=== PATIENT | female | born 1970 | race Caucasian/White ===

== ENCOUNTER 2017-03-23 09:56 | Inpatient (IN) | payer BC, OTHER ==
[2017-03-23] MEDS ORDERED: methylPREDNISolone Sod Succ/PF 125 MG/2 ML VIAL ONE (10:26)
[2017-03-23 10:39] LABS: #Basophils 0.1 thou/uL (0.0-0.2); #Eosinphils 0.1 thou/uL (0.0-0.7); #Lymphocytes 0.6 thou/uL (1.20-3.40); #Monocytes 0.5 thou/uL (0.11-0.59); #Neutrophils 6.3 thou/uL (1.40-6.50); %Basophils 1.1 % (0.0-1.0); %Eosinophils 1.2 % (0.0-10.0); %Lymphocytes 7.3 % (21.0-51.0); %Monocytes 7.1 % (0.0-10.0); %Neutrophils 83.3 % (42.0-75.0); Hemoglobin 14.1 g/dL (12.0-16.0); Mean Corpuscular Hemoglobin 31.9 pg (27.0-31.0); Mean Corpuscular Volume 93.8 fl (81.0-99.0); Mean Platelet Volume 6.8 fL (7.4-10.4); Platelet Count 213 thou/uL (130-400); RBC Distribution Width 11.7 % (11.5-14.5); Red Blood Cell (RBC) Count 4.43 mill/uL (4.20-5.40); White Blood Cell (WBC) Count 7.5 thou/uL (4.8-10.8)
[2017-03-23 10:42] LABS: INR-International Normal Ratio 0.9; Prothrombin Time 12.4 SEC (12.0-14.7)
[2017-03-23 10:43] LABS: D-Dimer Test 0.51 *mcg/mL (0.27-0.43)
[2017-03-23 10:50] LABS: BHCG - Serum Negative (NEGATIVE); Pregs Control Background? CLEAR/WHITE (CLR/WHITE); Pregs Control Bar Appear? YES (CONTROL BAR)
[2017-03-23 10:51] LABS: ALT (SGPT) 17 U/L (8-55); AST (SGOT) 17 U/L (5-34); Albumin 4.1 g/dL (3.5-5.0); Alkaline Phosphatase 66 U/L (40-150); Anion Gap 14 mmol/L (10-20); BUN (Urea Nitrogen) 13 mg/dL (7.0-18.7); Bilirubin, Total 0.4 mg/dL (0.2-1.2); Calc. Creatinine Clearance 0 mL/min (70-130); Calcium 8.7 mg/dL (7.8-10.44); Carbon Dioxide 22 mmol/L (22-29); Chloride 109 mmol/L (98-107); Estimated GFR-MDRD 83; Globulin 2.5 g/dL (2.4-3.5); Glucose 98 mg/dL (70-105); Potassium 4.1 mmol/L (3.5-5.1); Protein, Total 6.6 g/dL (6.0-8.3); Sodium 141 mmol/L (136-145)
[2017-03-23 10:53] LABS: CKMB 0.9 ng/mL (0-6.6); Troponin I Less than 0.010 ng/mL (< 0.028)
[2017-03-23] MEDS ORDERED: Magnesium Sulfate 2 GM/100 ML BAG ONE (11:18)
[2017-03-23 11:59] LABS: Bilirubin Negative (Negative); Blood, Urine Small (Negative); Clarity Clear (Clear); Glucose, Urine (Dipstick) Negative (Negative); Leukocyte Trace (Negative); Nitrite Negative (Negative); Protein, Urine (Dipstick) Negative (Neg-Trace); Urobilinogen 0.2 mg/dL (0.2-1.0); pH, Urine 7.5 (5.0-9.0)
[2017-03-23 12:18] LABS: Bacteria/HPF 1+ HPF (None Seen); RBC/HPF 0-3 HPF (0-3); Squamous Epithelial 0-3 HPF (0-3); WBC/HPF 0-3 HPF (0-3)
[2017-03-23] MEDS ORDERED: Levofloxacin 500 mg/D5W 100 ml Premix Bag ONE (12:20)
[2017-03-23] MEDS ORDERED: Albuterol Sulfate 2.5 mg/3 ml Neb NEB PRN (13:23)
[2017-03-23] MEDS ORDERED: Sodium Chloride 0.9% 10 ML ONE (13:24)
[2017-03-23 13:34] VITALS: BMI 33.2
[2017-03-23] MEDS ORDERED: methylPREDNISolone Sod Succ/PF 125 MG/2 ML VIAL IVP SCH (18:00)
[2017-03-23] MEDS ORDERED: Lorazepam 0.5 MG TAB PO PRN (18:07)
--- NOTE | 2017-03-23 19:21 | RAD ---
CHEST TWO VIEWS: 03/23/17 Comparison is made with the 05/06/15 study. The heart is normal in size and the lungs are clear. No infiltrate or effusion was seen. Vascularity is normal. The mediastinum appears normal. The trachea is midline. IMPRESSION: Stable exams showing no acute finding. POS: HOME
--- NOTE | 2017-03-23 21:19 | HP ---
CHIEF COMPLAINT: Shortness of breath and wheezing. HISTORY OF PRESENT ILLNESS: Ms. Escobar is a 47-year-old female who presented to the emergency room today with worsening shortness of breath. Patient reports she was in her usual state of health and compliant with all of her medications for asthma/COPD, when she stepped in a hole at work on the evening of 03/20, which resulted in a fall, contacting her knees bilaterally and causing some bruising. She reports that she became soak and wet with this. Denies any other trauma including to the thorax or to the head. However, she noted the next morning onset of chest congestion, which subsequently increased to wheezing, tightness, and white sputum production. She used her DuoNeb back to back and her albuterol inhaler at home and continued to have worsening symptoms. Therefore, she presented to the emergency room today for further evaluation. Patient also admits to some right-sided anterior chest pain that increased with breathing that radiates to back. She does have a pulse ox at home that she reports was down to 92%. She reports a long history of asthma that was diagnosed in her late 20s followed by COPD several years later. She has a past smoking history, but has been abstaining from smoking for over a year now. She reports her condition was monitored previously by special client bus driver [place] She has not seen anyone locally for this other than her primary care provider. She reports a history of ICU admission x2 in the past but has never been intubated. She reports her last hospitalization for asthma or COPD exacerbation was over 6 years ago. She reports having milder symptoms, diagnosed with acute bronchitis last month by her primary care provider's office and given a course of Zithromax and a Medrol Dosepak, which she completed. Otherwise, she has had no recent antibiotic therapy. In the emergency room, patient was treated with 10 mg of DuoNeb, 4 tablets of 81 mg aspirin, Solu-Medrol 125 mg IV push, mag sulfate 2 grams IV, and Levaquin 500 mg IV. Patient was notably tachypneic on arrival, but continued to have a stable oxygen saturation of 96% on room air. She was placed on O2 at 2 liters per minute and this remained stable. Therefore, we were called to admit the patient for persistent tachypnea and wheezing. PAST MEDICAL HISTORY: 1. Hypothyroidism. 2. Anxiety. 3. Asthma. 4. Chronic obstructive pulmonary disease. 5. Former smoker. 6. Esophageal reflux. 7. Intermittent right upper quadrant pain of uncertain etiology. PAST SURGICAL HISTORY: None. SOCIAL HISTORY: No alcohol or illicit drug use. Former smoker, but quit in the last year. She is in a domestic partnership for 14 years and lives in [place]. Her primary care clinic is [facility] in [place] with Sae Cam, her current primary care provider. FAMILY HISTORY: Noncontributory. HOME MEDICATIONS: 1. SHEET TESTER thyroid 30 mg daily. 2. Sertraline 125 mg p.o. q.p.m. 3. Protonix 40 mg p.o. daily. 4. Advair HFA 230 mcg-21 mcg/actuation b.i.d. 5. ProAir HFA 2 inhalations q.4 hours p.r.n. 6. DuoNeb p.r.n. REVIEW OF SYSTEMS: General: Denies fever, chills, weight loss, myalgias, positive weight gain. HEENT: Denies sore throat, ear pain, rhinorrhea, changes in vision. Respirations: Denies hemoptysis. Positive cough, positive white sputum. Cardiovascular: Right-sided anterior chest pain that increases with breathing, but is constant and radiates to back. No orthopnea, PND, history of angina. Gastrointestinal: Denies constipation, diarrhea, nausea, vomiting, melena, hematochezia. Genitourinary: Patient reports good urinary output. Denies dysuria, gross hematuria, frequency, urgency. Endocrine: Patient reports inability to lose weight. Longstanding. Denies heat or cold intolerance. Musculoskeletal: Patient reports pain to the right upper quadrant of the abdomen that is worse after eating and present for approximately 1 month. Uncertain etiology. Bruising to bilateral knees, status post fall few days ago. Lymphatic: Denies swelling. PHYSICAL EXAMINATION: VITAL SIGNS: Blood pressure 130/84, heart rate 90, O2 sat 96% on room air, respiration shows respirations 30, temperature 98.7. At my exam, temperature 98.3, pulse 95, respirations 24, 96% on 2 liters per minute, blood pressure 118/ 59. GENERAL: Well-developed, overweight female who appears to be in no acute distress, speaks in complete sentences. Her respiratory rate does increase when it is time for examination with tachypnea noted and slightly anxious in appearance. Alert and oriented x3. HEENT: Normocephalic, atraumatic. Pupils equally round, reactive to light and accommodation. Extraocular muscles intact. Nares are patent without discharge. Tongue protrudes in the midline. NECK: Supple, without lymphadenopathy, thyromegaly, JVD, or bruit. HEART: Regular rate and rhythm. Normal S1, S2. No murmurs, clicks, rubs, or gallops. LUNGS: Diminished air entry throughout with expiratory greater than inspiratory wheezing in all dash. No rhonchi. NEUROLOGICAL: Positive bowel sounds in all four quadrants, soft, nontender, nondistended, no masses, guarding, or rebound tenderness. EXTREMITIES: No cyanosis, clubbing, or edema. MUSCULOSKELETAL: Mild ecchymosis noted over the anterior patellar bilaterally without erythema or warmth. NEUROLOGIC: Cranial nerves II-XII grossly intact. No focal deficits. PSYCHIATRIC: Positive anxious, normal speech, thought process appropriate, affect appropriate. LABORATORY DATA: White count 7.5, hemoglobin 14.1, hematocrit 41.6, platelets 213 with 83% neutrophils, 7% lymphocytes. PT 12.4, INR 0.9, PTT 29.0. D-Dimer 0.51. Sodium 141, potassium 4.1, chloride 109, bicarb 22, BUN 13, creatinine 0.75, glucose 98, lactic acid 1.4, calcium 8.7. AST 17, ALT 17, alkaline phosphatase 66, CK-MB 0.9, troponin I less than 0.010. BNP of 11.8, total protein 6.6, albumin 4.1, globulin 2.5. test negative. Urinalysis significant for small blood, trace leukocyte esterase, 1+ bacteria, otherwise negative. EKG shows normal sinus rhythm with heart rate 82 beats per minute, no ischemic changes. Chest x-ray shows no acute consolidation and hyperexpansion. ASSESSMENT AND PLAN: 1. Acute exacerbation of asthma/chronic obstructive pulmonary disease. Patient will be admitted and continued on O2 p.r.n. We will continue DuoNebs q.6 hours with albuterol q.2 hours p.r.n. We will continue on Solu-Medrol 125 mg IV q.8 hours. We will continue Levaquin 500 mg IV daily. We will continue the patient's inhaled corticosteroid long-acting beta agonist combo. Repeat CBC and basic metabolic profile in the a.m. Follow up official Radiology read of the chest x-ray. Patient appears to be anxious with shallow breathing that seems to increase at the time of examination. Therefore, I think she may benefit from a small dose of lorazepam. We will try this cautiously. 2. Elevated D-dimer. This is minimally elevated, however, with the patient's reported chest pain and recent trauma, I would to like to proceed with CT, PE protocol. 3. Right upper quadrant pain. This has been ongoing for approximately 1 month and was related to food. I recommend that the patient have her gallbladder evaluated as an outpatient. 4. Esophageal reflux. Patient will be continued on her pantoprazole. 5. Hypothyroidism. We will check a TSH. Continue patient's thyroid medication. 6. Anxiety. The patient sertraline will be continued during her hospitalization. We will give lorazepam p.r.n. as per #1. 7. Prophylaxis. PPI has been continued. We will order SCDs. CODE STATUS: FULL RESUSCITATION. MTDD
--- NOTE | 2017-03-23 23:43 | CT ---
CT ANGIO OF THE THORAX WITH CONTRAST 03/23/[address] of the chest was done after a bolus of IV contrast. Unfortunately, the timing of the bolus is suboptimal such that more of the dense contrast is in the systemic arteries and pulmonary arteries . Because of this, this study is indeterminate for pulmonary embolism. There were no obvious very lar ge filling defects in the main pulmonary arteries. Once one gets much beyond that, the sensitivity qu ickly decreases. There is no sign of aortic aneurysm or dissection. Significant coronary artery calci fications were not appreciated. There is no pericardial effusion. The mediastinum showed no mass or a denopathy. The lungs show no infiltrate, nodule, or effusion. The visible portions of the upper abdomen were unr emarkable. IMPRESSION: 1. Indeterminate study for pulmonary embolism. None were appreciated in the largest branches but little can be said passed those. 2. No acute cardiopulmonary findings otherwise. Preliminary findings taken to nursing station at approximately 1930. POS: HOME
[2017-03-24 05:38] LABS: #Basophils 0.1 thou/uL (0.0-0.2); #Lymphocytes 0.4 thou/uL (1.20-3.40); #Monocytes 0.5 thou/uL (0.11-0.59); #Neutrophils 9.5 thou/uL (1.40-6.50); %Basophils 0.6 % (0.0-1.0); %Lymphocytes 4.1 % (21.0-51.0); %Monocytes 4.8 % (0.0-10.0); %Neutrophils 90.6 % (42.0-75.0); Hemoglobin 13.5 g/dL (12.0-16.0); Mean Corpuscular HGB CONC 33.2 g/dL (32.0-36.0); Mean Corpuscular Hemoglobin 31.3 pg (27.0-31.0); Mean Corpuscular Volume 94.3 fl (81.0-99.0); Mean Platelet Volume 6.4 fL (7.4-10.4); Platelet Count 241 thou/uL (130-400); RBC Distribution Width 11.7 % (11.5-14.5); White Blood Cell (WBC) Count 10.5 thou/uL (4.8-10.8)
[2017-03-24] MEDS ORDERED: Albuterol Sulfate 2.5 mg/3 ml Neb NEB PRN (05:51)
[2017-03-24 05:58] LABS: Anion Gap 13 mmol/L (10-20); BUN (Urea Nitrogen) 13 mg/dL (7.0-18.7); Calc. Creatinine Clearance 145 mL/min (70-130); Calcium 9.3 mg/dL (7.8-10.44); Carbon Dioxide 23 mmol/L (22-29); Chloride 109 mmol/L (98-107); Estimated GFR-MDRD 85; Glucose 117 mg/dL (70-105); Potassium 4.2 mmol/L (3.5-5.1); Sodium 141 mmol/L (136-145)
[2017-03-24] MEDS: Mometasone/Formoterol 60 PUFF AER INH SCH ×2 (06:28→18:13)
[2017-03-24] MEDS ORDERED: Pantoprazole 40 MG GRANULES PACKET PO SCH (09:00)
[2017-03-24] MEDS ORDERED: methylPREDNISolone Sod Succ/PF 125 MG/2 ML VIAL IVP SCH ×3 (10:00→14:00)
[2017-03-24] MEDS: Ibuprofen 800 MG TAB PO PRN (11:45)
[2017-03-24] MEDS: methylPREDNISolone Sod Succ/PF 125 MG/2 ML VIAL IVP SCH ×2 (14:59→21:57)
[2017-03-24] MEDS: guaiFENesin ER 600 MG TAB PO SCH (21:58)
[2017-03-25] MEDS: methylPREDNISolone Sod Succ/PF 125 MG/2 ML VIAL IVP SCH ×3 (05:39→21:29)
[2017-03-25 06:23] LABS: #Basophils 0.1 thou/uL (0.0-0.2); #Lymphocytes 0.6 thou/uL (1.20-3.40); #Monocytes 0.4 thou/uL (0.11-0.59); #Neutrophils 16.8 thou/uL (1.40-6.50); %Basophils 0.3 % (0.0-1.0); %Lymphocytes 3.2 % (21.0-51.0); %Monocytes 2.1 % (0.0-10.0); %Neutrophils 94.4 % (42.0-75.0); Mean Corpuscular HGB CONC 33.6 g/dL (32.0-36.0); Mean Corpuscular Volume 95.1 fl (81.0-99.0); Mean Platelet Volume 6.4 fL (7.4-10.4); Platelet Count 244 thou/uL (130-400); RBC Distribution Width 11.8 % (11.5-14.5); Red Blood Cell (RBC) Count 4.38 mill/uL (4.20-5.40); White Blood Cell (WBC) Count 17.8 thou/uL (4.8-10.8)
[2017-03-25] MEDS: Mometasone/Formoterol 60 PUFF AER INH SCH ×2 (06:25→18:37)
[2017-03-25 06:29] LABS: Anion Gap 15 mmol/L (10-20); BUN (Urea Nitrogen) 15 mg/dL (7.0-18.7); Calc. Creatinine Clearance 139 mL/min (70-130); Calcium 9.5 mg/dL (7.8-10.44); Carbon Dioxide 23 mmol/L (22-29); Chloride 107 mmol/L (98-107); Estimated GFR-MDRD 82; Glucose 131 mg/dL (70-105); Potassium 4.3 mmol/L (3.5-5.1); Sodium 141 mmol/L (136-145)
[2017-03-25] MEDS: guaiFENesin ER 600 MG TAB PO SCH ×2 (09:29→21:28)
--- NOTE | 2017-03-25 09:29 | RAD ---
PA AND LATERAL VIEWS OF CHEST: Date: 03/25/17 HISTORY: Pneumonia. FINDINGS: Comparison made with exam of 03/23/17. The heart size is normal. The lungs are well expanded without focal areas of consolidation, pneumotho rax, or pleural effusions. There are mild degenerative changes in the spine. IMPRESSION: No radiographic evidence of acute cardiopulmonary process. POS: [facility]
[2017-03-25] MEDS: Ibuprofen 800 MG TAB PO PRN (14:41)
[2017-03-26] MEDS: Mometasone/Formoterol 60 PUFF AER INH SCH ×2 (06:23→18:19)
[2017-03-26] MEDS: methylPREDNISolone Sod Succ/PF 125 MG/2 ML VIAL IVP SCH ×3 (06:23→21:29)
[2017-03-26] MEDS: guaiFENesin ER 600 MG TAB PO SCH ×2 (09:30→21:31)
[2017-03-26] MEDS: Ibuprofen 800 MG TAB PO PRN (19:44)
[2017-03-27] MEDS: Mometasone/Formoterol 60 PUFF AER INH SCH (06:17)
[2017-03-27] MEDS: methylPREDNISolone Sod Succ/PF 125 MG/2 ML VIAL IVP SCH ×2 (06:17→13:38)
[2017-03-27] MEDS: guaiFENesin ER 600 MG TAB PO SCH ×2 (08:56→20:33)
[2017-03-27] MEDS: Ibuprofen 800 MG TAB PO PRN (12:42)
[2017-03-28] MEDS: Mometasone/Formoterol 60 PUFF AER INH SCH ×3 (06:05→17:49)
[2017-03-28] MEDS: predniSONE 20 MG TAB PO SCH (08:34)
[2017-03-28] MEDS: guaiFENesin ER 600 MG TAB PO SCH ×2 (08:34→20:42)
[2017-03-28] MEDS: Ibuprofen 800 MG TAB PO PRN (10:46)
[2017-03-29] MEDS: Mometasone/Formoterol 60 PUFF AER INH SCH (06:10)
[2017-03-29 06:55] VITALS: BP 125/61; TEMP 98.3
[2017-03-29] MEDS: guaiFENesin ER 600 MG TAB PO SCH (09:11)
[2017-03-29] MEDS: predniSONE 20 MG TAB PO SCH (09:11)
--- NOTE | 2017-03-29 22:29 | DIS ---
DATE OF ADMISSION: 03/23/2017 DATE OF DISCHARGE: 03/29/2017 ADMISSION DIAGNOSES: 1. Chronic obstructive pulmonary disease/asthma exacerbation. 2. Anxiety. 3. Former smoker. DISCHARGE DIAGNOSES: 1. Chronic obstructive pulmonary disease/asthma exacerbation, improving. 2. Ex-smoker. 3. Anxiety, stable. BRIEF SUMMARY OF HISTORY AND PHYSICAL: A 47-year-old white female who presented to the emergency [facility] on the day of admission with greater than 3 days history of increasing shortness of breath. She wa s exposed to someone else in her house, who had been coughing and having low grade fevers. The patie nt says that she stepped in the hole in the evening on 03/20/2017 and she fell, hitting her knees, ca using some bruising. She said she got very wet at that time. No significant trauma and then began h aving increased chest congestion with wheezing, tightness, and white sputum production. She used her DuoNebs back to back and as well as albuterol, but did not improve. She presented to the emergency room, was found to have a COPD/asthma exacerbation, and was admitted to the hospital. BRIEF SUMMARY OF HOSPITAL COURSE: The patient initially had a CT scan of the chest after x-rays were normal. CT scan was inconclusive due to poor dye penetration, but no large emboli of the large vess els were seen. The branches consistent with no signs of PE. The patient was started on IV steroids as well as IV antibiotics, frequent neb treatments and oxygen as needed. Over the next several days, she slowly improved with decreased shortness of breath with activity, decreased reliance on oxygen a nd she was switched from IV to p.o. steroids, which she tolerated well and was stable enough to be di scharged back to home on 03/29/2017. At discharge, her O2 sats was 96% on room air. DISCHARGE MEDICATIONS: 1. CADASTRAL ENGINEER thyroid 30 mg daily. 2. Sertraline 125 mg daily. 3. Protonix 40 mg daily. 4. Advair two puffs b.i.d. 5. ProAir 2 inhalations q.4. h. p.r.n. 6. DuoNebs q.6 h. p.r.n. shortness of breath. 7. She will be put on p.o. prednisone taper, starting at 60 mg daily, decreasing down to 10 mg a day . 8. She was also placed on Levaquin to complete a full 10-day course. DISCHARGE INSTRUCTIONS: The patient was told not to have increased activity and activity mainly as t olerated due to shortness of breath. No work until she follows up in the clinic in [place] by the end of the week. She was told to return to the emergency room if any of her symptoms worsen in any way.
== END 2017-03-29 16:38 | disposition home or self-care (01) | DRG 191 ==
LOC: BURERS 09:56 → BURMED 12:15
PROVIDERS: ADMIT Family Medicine; ATTEND Family Medicine
DX: J44.1 Chronic obstructive pulmonary disease with (acute) exacerbation (principal); J45.901 Unspecified asthma with (acute) exacerbation; Z87.891 Personal history of nicotine dependence; K21.9 Gastro-esophageal reflux disease without esophagitis; E03.9 Hypothyroidism, unspecified; F41.9 Anxiety disorder, unspecified
CPT/HCPCS: 36415; 71020; 71270; 80048; 80053; 81003; 81015; 82553; 83605; 83880; 84443; 84484; 84703; 85025; 85379; 85610; 85730; 87040; 87070; 87205; 93005; 94664; 94760; 96365; 96367; 96375; A4216; J1956; J2930; J3475; J7506; J7620

== ENCOUNTER 2017-08-28 18:20 | Emergency (ER) | payer BC | END 2017-08-28 18:54 | disposition home or self-care (01) | LOC: BURERS 18:20 | DX: M70.52 Other bursitis of knee, left knee (principal); J44.9 Chronic obstructive pulmonary disease, unspecified; F17.210 Nicotine dependence, cigarettes, uncomplicated; Z79.899 Other long term (current) drug therapy | CPT/HCPCS: 99283 ==

== ENCOUNTER 2018-04-22 21:49 | Emergency (ER) | payer BC ==
--- NOTE | 2018-04-22 23:59 | RAD ---
RIGHT HAND THREE VIEWS: 04/22/18 No fracture was seen. All bones appear intact. The carpal relationships seem normal. IMPRESSION: No acute finding. POS: HOME
== END 2018-04-22 22:44 | disposition home or self-care (01) ==
LOC: BURERS 21:49
DX: S62.514A Nondisplaced fracture of proximal phalanx of right thumb, initial encounter for closed fracture (principal); S60.221A Contusion of right hand, initial encounter; I10 Essential (primary) hypertension; J44.9 Chronic obstructive pulmonary disease, unspecified; F17.210 Nicotine dependence, cigarettes, uncomplicated; Z79.51 Long term (current) use of inhaled steroids; Z79.899 Other long term (current) drug therapy; W18.30XA Fall on same level, unspecified, initial encounter
CPT/HCPCS: Q4049

== ENCOUNTER 2020-06-20 13:35 | Emergency (ER) | payer BC, OTHER ==
[2020-06-20 14:21] LABS: #Basophils 0.1 thou/uL (0.0-0.2); #Eosinphils 0.1 thou/uL (0.0-0.7); #Lymphocytes 1.5 thou/uL (1.20-3.40); #Monocytes 0.5 thou/uL (0.11-0.59); %Basophils 0.8 % (0.0-1.0); %Eosinophils 0.6 % (0.0-10.0); %Lymphocytes 13.5 % (21.0-51.0); %Monocytes 4.5 % (0.0-10.0); %Neutrophils 80.6 % (42.0-75.0); Mean Corpuscular HGB CONC 32.3 g/dL (32.0-36.0); Mean Corpuscular Hemoglobin 31.2 pg (27.0-31.0); Mean Corpuscular Volume 96.5 fL (78.0-98.0); Mean Platelet Volume 9.1 fL (7.4-10.4); Platelet Count 255 thou/uL (130-400); RBC Distribution Width 13.5 % (11.5-14.5); White Blood Cell (WBC) Count 11.1 thou/uL (4.8-10.8)
[2020-06-20] MEDS ORDERED: Ondansetron PF 4 MG/2 ML Vial ONE (14:22)
[2020-06-20] MEDS ORDERED: Morphine 4 MG/ML VIAL ONE (14:22)
[2020-06-20] MEDS ORDERED: Aspirin Chewable 81 MG TAB ONE (14:22)
[2020-06-20 14:33] LABS: ALT (SGPT) 21 U/L (8-55); AST (SGOT) 17 U/L (5-34); Albumin 4.4 g/dL (3.5-5.0); Alkaline Phosphatase 69 U/L (40-110); Anion Gap 13 mmol/L (10-20); BUN (Urea Nitrogen) 13 mg/dL (7.0-18.7); Bilirubin, Total 0.3 mg/dL (0.2-1.2); Calc. Creatinine Clearance 0 mL/min (70-130); Calcium 9.2 mg/dL (7.8-10.44); Carbon Dioxide 27 mmol/L (22-29); Chloride 106 mmol/L (98-107); Globulin 2.3 g/dL (2.4-3.5); Glucose 111 mg/dL (70-105); Potassium 4.2 mmol/L (3.5-5.1); Protein, Total 6.7 g/dL (6.0-8.3); Sodium 142 mmol/L (136-145)
== END 2020-06-20 16:01 | disposition home or self-care (01) ==
LOC: BURERS 13:35
DX: R07.2 Precordial pain (principal); J44.9 Chronic obstructive pulmonary disease, unspecified; K21.9 Gastro-esophageal reflux disease without esophagitis; G43.909 Migraine, unspecified, not intractable, without status migrainosus; Z87.891 Personal history of nicotine dependence
CPT/HCPCS: 71045; 80053; 83880; 84484; 85025; 93005; 96374; 96375; J2270; J2405

== ENCOUNTER 2020-06-23 01:40 | Emergency (ER) | payer BC ==
[2020-06-23] MEDS ORDERED: Aspirin Chewable 81 MG TAB ONE (02:11)
[2020-06-23] MEDS ORDERED: Nitroglycerin 0.4 MG TAB 1 EACH ONE (02:11)
[2020-06-23 02:14] LABS: #Basophils 0.1 thou/uL (0.0-0.2); #Eosinphils 0.1 thou/uL (0.0-0.7); #Lymphocytes 2.5 thou/uL (1.20-3.40); #Monocytes 0.5 thou/uL (0.11-0.59); #Neutrophils 6.5 thou/uL (1.40-6.50); %Basophils 0.7 % (0.0-1.0); %Eosinophils 1.3 % (0.0-10.0); %Lymphocytes 26.3 % (21.0-51.0); %Monocytes 4.9 % (0.0-10.0); %Neutrophils 66.9 % (42.0-75.0); Hemoglobin 14.5 g/dL (12.0-16.0); Mean Corpuscular HGB CONC 32.9 g/dL (32.0-36.0); Mean Corpuscular Hemoglobin 31.1 pg (27.0-31.0); Mean Corpuscular Volume 94.7 fL (78.0-98.0); Mean Platelet Volume 8.3 fL (7.4-10.4); Platelet Count 235 thou/uL (130-400); RBC Distribution Width 12.8 % (11.5-14.5); Red Blood Cell (RBC) Count 4.67 mill/uL (4.20-5.40); White Blood Cell (WBC) Count 9.7 thou/uL (4.8-10.8)
[2020-06-23] MEDS ORDERED: Lidocaine 2% PF 100 mg/5 ml Syringe ONE (02:17)
[2020-06-23] MEDS ORDERED: Mag-Al Plus 1200 MG/1200 MG/120 MG/30 ML UDCUP ONE (02:17)
[2020-06-23 02:30] LABS: ALT (SGPT) 16 U/L (8-55); AST (SGOT) 13 U/L (5-34); Albumin 4.2 g/dL (3.5-5.0); Alkaline Phosphatase 77 U/L (40-110); Anion Gap 14 mmol/L (10-20); BUN (Urea Nitrogen) 23 mg/dL (7.0-18.7); Bilirubin, Total 0.2 mg/dL (0.2-1.2); Calc. Creatinine Clearance 0 mL/min (70-130); Calcium 9.5 mg/dL (7.8-10.44); Carbon Dioxide 25 mmol/L (22-29); Chloride 106 mmol/L (98-107); Globulin 2.7 g/dL (2.4-3.5); Glucose 105 mg/dL (70-105); Potassium 3.6 mmol/L (3.5-5.1); Protein, Total 6.9 g/dL (6.0-8.3); Sodium 141 mmol/L (136-145)
== END 2020-06-23 02:55 | disposition home or self-care (01) ==
LOC: BURERS 01:40
DX: R07.89 Other chest pain (principal); G43.909 Migraine, unspecified, not intractable, without status migrainosus; J44.9 Chronic obstructive pulmonary disease, unspecified; K21.9 Gastro-esophageal reflux disease without esophagitis; Z87.891 Personal history of nicotine dependence; Z79.899 Other long term (current) drug therapy
CPT/HCPCS: 71045; 80053; 84484; 85025; 93005; 94760; J2001

== ENCOUNTER 2020-08-01 15:18 | Emergency (ER) | payer BC ==
[2020-08-01] MEDS ORDERED: Albuterol Sulfate 1.25 MG/3 ML NEB ONE ×2 (15:40→16:18)
[2020-08-01] MEDS ORDERED: methylPREDNISolone Sod Succ/PF 125 MG/2 ML VIAL ONE (15:52)
[2020-08-01] MEDS ORDERED: Magnesium 2 GM/50 ML BAG (IN WATER) ONE (15:52)
== END 2020-08-01 16:53 | disposition home or self-care (01) ==
LOC: BURERS 15:18
DX: J45.901 Unspecified asthma with (acute) exacerbation (principal); K21.9 Gastro-esophageal reflux disease without esophagitis; Z87.891 Personal history of nicotine dependence; Z79.899 Other long term (current) drug therapy
CPT/HCPCS: 71045; 94640; 94760; 96365; 96375; J2930; J3475; J7620

== ENCOUNTER 2021-08-04 12:08 | Emergency (ER) | payer BC ==
[2021-08-04 13:15] LABS: #Basophils 0.1 thou/uL (0.0-0.2); #Monocytes 0.3 thou/uL (0.11-0.59); #Neutrophils 11.2 thou/uL (1.40-6.50); %Basophils 0.5 % (0.0-1.0); %Lymphocytes 7.7 % (21.0-51.0); %Monocytes 2.1 % (0.0-10.0); %Neutrophils 89.8 % (42.0-75.0); Hemoglobin 14.8 g/dL (12.0-16.0); Mean Corpuscular Hemoglobin 32.9 pg (27.0-31.0); Mean Corpuscular Volume 96.6 fL (78.0-98.0); Mean Platelet Volume 6.9 fL (7.4-10.4); Platelet Count 247 thou/uL (130-400); RBC Distribution Width 12.2 % (11.5-14.5); Red Blood Cell (RBC) Count 4.51 mill/uL (4.20-5.40); White Blood Cell (WBC) Count 12.5 thou/uL (4.8-10.8)
[2021-08-04 13:27] LABS: ALT (SGPT) 21 U/L (8-55); AST (SGOT) 13 U/L (5-34); Alkaline Phosphatase 57 U/L (40-110); Anion Gap 15 mmol/L (10-20); BUN (Urea Nitrogen) 12 mg/dL (9.8-20.1); Bilirubin, Total 0.5 mg/dL (0.2-1.2); Calc. Creatinine Clearance 0 mL/min (70-130); Calcium 9.1 mg/dL (7.8-10.44); Carbon Dioxide 25 mmol/L (22-29); Chloride 108 mmol/L (98-107); Globulin 2.3 g/dL (2.4-3.5); Glucose 98 mg/dL (70-105); Protein, Total 6.3 g/dL (6.0-8.3); Sodium 144 mmol/L (136-145)
[2021-08-04] MEDS ORDERED: predniSONE 20 MG TAB ONE (13:32)
== END 2021-08-04 13:43 | disposition home or self-care (01) ==
LOC: BURERS 12:08
DX: J44.1 Chronic obstructive pulmonary disease with (acute) exacerbation (principal); K21.9 Gastro-esophageal reflux disease without esophagitis; Z79.51 Long term (current) use of inhaled steroids; Z79.899 Other long term (current) drug therapy; Z87.891 Personal history of nicotine dependence
CPT/HCPCS: 36415; 71045; 80053; 84484; 85025; 93005; J7512

== ENCOUNTER 2021-12-22 19:12 | Emergency (ER) | payer BC, OTHER ==
[2021-12-22] MEDS ORDERED: predniSONE 20 MG TAB ONE (19:45)
[2021-12-22] MEDS ORDERED: Albuterol Sulfate 2.5 mg/0.5 ml Neb ONE (21:05)
[2021-12-22] MEDS ORDERED: Sodium Chloride For Inhalation 0.9% 3 ML NEB ONE (21:07)
[2021-12-22] MEDS ORDERED: methylPREDNISolone Sod Succ/PF 125 MG/2 ML VIAL ONE (22:40)
[2021-12-22 22:48] LABS: #Monocytes 0.3 thou/uL (0.11-0.59); %Basophils 0.4 % (0.0-1.0); %Lymphocytes 10.4 % (21.0-51.0); %Monocytes 3.2 % (0.0-10.0); %Neutrophils 86.1 % (42.0-75.0); Hemoglobin 15.3 g/dL (12.0-16.0); Mean Corpuscular HGB CONC 34.3 g/dL (32.0-36.0); Mean Corpuscular Volume 96.3 fL (78.0-98.0); Mean Platelet Volume 7.4 fL (7.4-10.4); Platelet Count 259 thou/uL (130-400); RBC Distribution Width 12.1 % (11.5-14.5); Red Blood Cell (RBC) Count 4.62 mill/uL (4.20-5.40); White Blood Cell (WBC) Count 9.3 thou/uL (4.8-10.8)
[2021-12-22 23:08] LABS: ALT (SGPT) 28 U/L (8-55); AST (SGOT) 16 U/L (5-34); Albumin 4.3 g/dL (3.5-5.0); Alkaline Phosphatase 61 U/L (40-110); Anion Gap 21 mmol/L (10-20); BUN (Urea Nitrogen) 26 mg/dL (9.8-20.1); Bilirubin, Total 0.3 mg/dL (0.2-1.2); Calc. Creatinine Clearance 0 mL/min (70-130); Calcium 9.1 mg/dL (7.8-10.44); Carbon Dioxide 22 mmol/L (22-29); Chloride 105 mmol/L (98-107); Estimated GFR 55; Globulin 2.5 g/dL (2.4-3.5); Glucose 147 mg/dL (70-105); Magnesium 2.2 mg/dL (1.6-2.6); Potassium 3.6 mmol/L (3.5-5.1); Protein, Total 6.8 g/dL (6.0-8.3); Sodium 144 mmol/L (136-145)
[2021-12-22] MEDS ORDERED: Magnesium 2 GM/50 ML BAG (IN WATER) ONE (23:30)
== END 2021-12-22 23:59 | disposition short-term general hospital (02) ==
LOC: BURERS 19:12
DX: J44.1 Chronic obstructive pulmonary disease with (acute) exacerbation (principal); Z87.891 Personal history of nicotine dependence
CPT/HCPCS: 71045; 80053; 83735; 83880; 84484; 85025; 93005; 94760; 96365; 96375; J2930; J3475; J7512; J7611; J7620

== ENCOUNTER 2022-04-13 23:57 | Emergency (ER) | payer OTHER ==
[2022-04-14] MEDS ORDERED: Dexamethasone 4 MG TAB ONE (00:43)
== END 2022-04-14 00:55 | disposition home or self-care (01) ==
LOC: BURERS 23:57
DX: S39.011A Strain of muscle, fascia and tendon of abdomen, initial encounter (principal); J44.9 Chronic obstructive pulmonary disease, unspecified; K21.9 Gastro-esophageal reflux disease without esophagitis; G43.909 Migraine, unspecified, not intractable, without status migrainosus; X58.XXXA Exposure to other specified factors, initial encounter; Z79.899 Other long term (current) drug therapy
CPT/HCPCS: 71045; J8540

== ENCOUNTER 2022-08-18 11:18 | Emergency (ER) | payer OTHER ==
[2022-08-18] MEDS ORDERED: Ipratropium/Albuterol 3 ML NEB ONE ×2 (11:29→12:00)
[2022-08-18] MEDS ORDERED: Dexamethasone 10 MG/ML VIAL ONE (11:38)
== END 2022-08-18 12:25 | disposition home or self-care (01) ==
LOC: BURERS 11:18
DX: J44.1 Chronic obstructive pulmonary disease with (acute) exacerbation (principal); Z87.891 Personal history of nicotine dependence
CPT/HCPCS: 71045; 94640; J1100; J7620

== ENCOUNTER 2023-05-25 11:27 | Emergency (ER) | payer OTHER ==
[2023-05-25] MEDS ORDERED: Ketorolac Tromethamine 30 MG (1 mL) VIAL ONE (11:48)
[2023-05-25] MEDS ORDERED: Morphine 2 MG/ML VIAL ONE (11:49)
[2023-05-25] MEDS ORDERED: predniSONE 20 MG TAB ONE (11:52)
== END 2023-05-25 12:30 | disposition home or self-care (01) ==
LOC: BURERS 11:27
DX: M54.50 Low back pain, unspecified (principal); J44.9 Chronic obstructive pulmonary disease, unspecified; K21.9 Gastro-esophageal reflux disease without esophagitis; Z87.891 Personal history of nicotine dependence
CPT/HCPCS: 96372; 99283; J1885; J2272; J7512

== ENCOUNTER 2023-11-04 06:39 | Emergency (ER) | payer OTHER ==
[2023-11-04] MEDS ORDERED: Acetaminophen 500 MG TAB ONE (06:55)
[2023-11-04 07:09] LABS: #Basophils 0.1 thou/uL (0.0-0.2); #Eosinphils 0.1 thou/uL (0.0-0.7); #Lymphocytes 1.5 thou/uL (1.20-3.40); #Neutrophils 14.8 thou/uL (1.40-6.50); %Basophils 0.6 % (0.0-1.0); %Eosinophils 0.8 % (0.0-10.0); %Lymphocytes 8.5 % (21.0-51.0); %Monocytes 5.8 % (0.0-10.0); %Neutrophils 84.3 % (42.0-75.0); Hemoglobin 15.5 g/dL (12.0-16.0); Mean Corpuscular HGB CONC 34.5 g/dL (32.0-36.0); Mean Corpuscular Hemoglobin 32.2 pg (27.0-31.0); Mean Corpuscular Volume 93.4 fl (78.0-98.0); Mean Platelet Volume 7.7 fL (7.4-10.4); Platelet Count 264 10x3/uL (130-400); RBC Distribution Width 11.7 % (11.5-14.5); Red Blood Cell (RBC) Count 4.82 mill/uL (4.20-5.40); White Blood Cell (WBC) Count 17.5 10x3/uL (4.8-10.8)
[2023-11-04] MEDS ORDERED: Ketorolac Tromethamine 30 MG (1 mL) VIAL ONE (07:09)
[2023-11-04 07:27] LABS: Troponin I Less than 0.010 ng/mL (< 0.028)
[2023-11-04 07:28] LABS: ALT (SGPT) 21 U/L (8-55); AST (SGOT) 15 U/L (5-34); Albumin 4.4 g/dL (3.5-5.0); Alkaline Phosphatase 93 U/L (40-110); Anion Gap 18 mmol/L (10-20); BUN (Urea Nitrogen) 14 mg/dL (9.8-20.1); Bilirubin, Total 0.7 mg/dL (0.2-1.2); Calc. Creatinine Clearance 0 mL/min (70-130); Calcium 9.2 mg/dL (7.8-10.44); Carbon Dioxide 24 mmol/L (22-29); Chloride 106 mmol/L (98-107); Estimated GFR 73; Globulin 2.5 g/dL (2.4-3.5); Glucose 94 mg/dL (70-105); Potassium 3.5 mmol/L (3.5-5.1); Protein, Total 6.9 g/dL (6.0-8.3); Sodium 144 mmol/L (136-145)
[2023-11-04] MEDS ORDERED: cefTRIAXone (ROCEPHIN) 1 GM VIAL ONE (07:28)
[2023-11-04] MEDS ORDERED: Ipratropium/Albuterol 3 ML NEB ONE (07:28)
[2023-11-04] MEDS ORDERED: Sodium Chloride 0.9% 100 ML ONE (07:29)
[2023-11-04 07:47] LABS: Influenza A by NAA Not Detected (NotDetected); Influenza B by NAA Not Detected (NotDetected); SARS-CoV-2 NAA Rapid Test Not Detected (NotDetected)
[2023-11-04 09:39] LABS: Lactic Acid 1.8 mmol/L (0.5-2.2)
[2023-11-04] MEDS ORDERED: Iopamidol 370 76% 100 ML VIAL ONE (14:36)
== END 2023-11-04 10:00 | disposition home or self-care (01) ==
LOC: BURERS 06:39
DX: J18.9 Pneumonia, unspecified organism (principal); J44.9 Chronic obstructive pulmonary disease, unspecified; K21.9 Gastro-esophageal reflux disease without esophagitis; Z87.891 Personal history of nicotine dependence; Z79.899 Other long term (current) drug therapy
CPT/HCPCS: 36415; 71045; 71275; 80053; 83605; 83880; 84484; 85025; 85379; 87040; 93005; 94760; 96361; 96365; 96375; J0696; J1885; J7620